=== PATIENT | female | born 1955 | race Caucasian/White ===

== ENCOUNTER → 2017-07-23 | Outpatient (CLI) | payer BC ==
[~2017-07-23] MED LIST: ACE325 PO; ALBU8.5H IH; AMIT-106 PO; AZIT-17 PO; BEN100 PO; BENZ100C4 PO; BENZ200C15 PO; BENZ200C38 PO; BLOO-1318 MC; BLOO-1337 MC; CALC-547 PO; CHOLESTROL MED; CIPR100T4 PO; CITA-156 PO; CITA-157 PO; CITA10SO7 PO; CLOB59LO4 TP; CODE118S5 PO; COL625PT PO; DESI25TA PO; DEXL60CA6 PO; DICY20TA70 PO; DIPH0.5D12 IM; DOXY-179 PO; EMPA1TAB3 PO; ESOM40CA42 PO; ESTR10TA4 VG; ESTR42.5 VG; EZE10 PO; EZET10TA41 PO; FLU150 PO; FLU45SYR17 IM; FLU45SYR25 IM ONLY; FLU60SYR30 IM ONLY; FLUC100T35 PO; FLUC150T40 PO; FLUT16SP19 NS; GABA-549 PO; GENUVIA PO; GLIM2TAB43 PO; GLIP-152 PO; GUAI120L3 PO; HYDR-4309 PO; HYOS-49 PO; HYOS0.1224 SL; KET10 PO; LANC-1149 MC; LEVO-3 PO; LEVO50TA86 PO; LEVO75TA68 PO; LEVO75TA73 PO; LEVO88TA42 PO; LEVO88TA45 PO; LOM PO; LORA-630 PO; MELO-207 PO; METR-1 PO; METXR500 PO; MOX400 PO; NITR-105 PO; OLO2ODPT OD; OMEP-125 PO; OMEP-137 PO; OMEP40CA48 PO; ONDA4TAB PO; ONDA8TAB98 PO; OXYC-865 PO; PAN40 PO; PER PO; POLY17PO25 PO; POTA-23 PO; PRAV20TA65 PO; PRAV20TA66 PO; PRAV40TA78 PO; PRO25 PO; SAXA2.5T3 PO; SITA100T PO; SITA50TA6 PO; TRAM-420 PO; [UNRECOGNIZED DRUG - CODE] PO
--- NOTE | 2017-07-23 14:26 | RADIOLOGY IMAGING REPORT ---
FACILITY: [facility] PATIENT NAME: Lia Nieves : 1955 MR: [id number] V: [id number] EXAM DATE: ORDERING PHYSICIAN: TERESA HANDY TECHNOLOGIST: [facility] Patient: Lia Nieves : 1955 Visit/Account:[id number] Date of Sevice: 07/23/2017 2 VIEWS CHEST INDICATION: Copy one half weeks. COMPARISON: 04/21/2017. FINDINGS: Cardiomediastinal silhouette and pulmonary vessels within normal limits. There is no focal infiltrate or lobar consolidation. There is no pneumothorax or pleural effusion. No nodule. Upper abdomen is unremarkable. No acute bony abnormality. IMPRESSION: 1. No acute cardiopulmonary process. Report Dictated By: Paolo Shah at 07/23/2017 2:20 PM Report E-Signed By: Paolo Shah at 07/23/2017 2:22 PM WSN:[id number]
== END ==
LOC: RAD 13:41
PROVIDERS: ATTEND Nurse Practitioner Primary Care
DX: R05 Cough (principal)
CPT/HCPCS: 71046

== ENCOUNTER → 2017-08-13 | Outpatient (CLI) | payer BC ==
[~2017-08-13] MED LIST changes: +FLUT1DIS28 IH
== END ==
LOC: LAB 14:09
PROVIDERS: ATTEND Emergency Medicine
DX: E11.9 Type 2 diabetes mellitus without complications (principal); E03.9 Hypothyroidism, unspecified
CPT/HCPCS: 82465; 83718; 84443; 84478

== ENCOUNTER → 2017-09-27 | Outpatient (CLI) | payer BC ==
[~2017-09-27] MED LIST changes: +FLUC100T39 PO
== END ==
LOC: LAB 13:32
PROVIDERS: ATTEND Emergency Medicine
DX: E11.9 Type 2 diabetes mellitus without complications (principal); E03.9 Hypothyroidism, unspecified
CPT/HCPCS: 36415; 83036; 84443

== ENCOUNTER → 2017-10-18 | Outpatient (CLI) | payer BC ==
[~2017-10-18] MED LIST changes: +CITA-137 PO; +CLOB15OI16 TP; +LOR5/325 PO
== END ==
LOC: LAB 11:01
PROVIDERS: ATTEND Obstetrics & Gynecology
DX: N90.89 Other specified noninflammatory disorders of vulva and perineum (principal)
CPT/HCPCS: 88305

== ENCOUNTER → 2017-11-06 | Outpatient (CLI) | payer BC | LOC: LAB 16:47 | PROVIDERS: ATTEND Nurse Practitioner Primary Care | DX: N89.8 Other specified noninflammatory disorders of vagina (principal); R35.0 Frequency of micturition | CPT/HCPCS: 81001; 87210 ==

== ENCOUNTER → 2017-12-16 | Outpatient (CLI) | payer BC | LOC: LAB 08:52 | PROVIDERS: ATTEND Emergency Medicine | DX: E11.9 Type 2 diabetes mellitus without complications (principal) | CPT/HCPCS: 36415; 82465; 83036; 83718; 84443; 84478 ==

== ENCOUNTER 2018-01-24 20:20 | Emergency (ER) | payer BC ==
--- NOTE | 2018-01-24 20:27 | ER Report ---
History and Physical Time Seen By MD: 20:27 Hx. of Stated Complaint: DIARRHEA AND NAUSEA ALL WEEK, TODAY DIARRHEA AND ABD PAIN WORSE, CHILLS, BODY ACHES HPI/ROS CHIEF COMPLAINT: abdominal pain, fever, aches, diarrhea HISTORY OF PRESENT ILLNESS: This is a 63 year old female. She has been having abdominal pain for the last week or so associated with diarrhea as well. Today started having chills and aches as well. Pain diffuse in the abdomen. Worsens with sitting or moving. No vomiting yet. Took some pepto-bismol. Stools have been a little dark since the pepto. No fevers, but having chills. Normal urination without dysuria. No blood noted in stool or urine. No new medicines. She took some Zofran and Tylenol prior to coming in to the ER, but without relief. REVIEW OF SYSTEMS: Constitutional: As above. Eyes: No vision changes. ENT: No sore throat. No congestion. Cardiovascular: No chest pain. Respiratory: No cough. No shortness of breath. Gastrointestinal: As above. Genitourinary: As above. Musculoskeletal: No extremity pain. Skin: No rashes. Neurological: No focal weakness or numbness. Mild dizziness with standing. No headache. Allergies: Coded Allergies: Penicillins (Verified Allergy, Intermediate, HIVES, 01/24/18) simvastatin (Verified Allergy, Intermediate, Severe muscle pain, 01/24/18) Sulfa (Sulfonamide Antibiotics) (Verified Allergy, Mild, N/V, 01/24/18) atorvastatin (Verified Allergy, Mild, weakness, 01/24/18) celecoxib (Verified Allergy, Mild, weakness, 01/24/18) erythromycin base (Verified Allergy, Mild, N/V, HEADAHCE, 01/24/18) levofloxacin (Verified Allergy, Unknown, 01/24/18) clindamycin (Verified Adverse Reaction, Intermediate, rash, 01/24/18) prednisone (Verified Adverse Reaction, Intermediate, Tremor and anxiety, ) rosuvastatin (Verified Adverse Reaction, Mild, weakness, 01/24/18) Home Meds Active Scripts Oxycodone Hcl/Acetaminophen (PERCOCET 5-325 MG TABLET) 1 Each Tablet, 1 EACH PO Q4H Y for PAIN, #12 TAB 0 Refills Prov:LONNY ADAMES MD 01/24/18 Promethazine Hcl (PROMETHAZINE HCL) 25 Mg Tablet, 25 MG PO Q8H Y for NAUSEA/ VOMITING, #20 TAB 0 Refills Prov:LONNY ADAMES MD 01/24/18 Empagliflozin/Linagliptin (Glyxambi 10 mg-5 mg Tablet) 1 Each Tablet, 1 TAB PO DAILY, #90 TAB 3 Refills Prov:ESVIN BAXTER MD 01/21/18 Clobetasol Propionate (CLOBETASOL PROPIONATE) 15 Gm Oint...g., 1 RAS TP 3XW for 30 Days, #1 TUBE 1 Refill 1 application to affected area 3 times weekly Prov:TONYA HOOKS MD 01/09/18 Levothyroxine Sodium (LEVOTHYROXINE SODIUM) 100 Mcg Tablet, 100 MCG PO DAILY, # 45 TAB 0 Refills Prov:ESVIN BAXTER MD 12/17/17 Omeprazole (OMEPRAZOLE) 40 Mg Capsule.dr, 40 MG PO QDAY Y for REFLUX, #90 CAP 4 Refills Prov:ESVIN BAXTER MD 12/17/17 Fluticasone Prop 50 Mcg Ns (FLONASE 50 MCG NS) 16 Gm [place].susp, 2 SPRAYS NS QDAY, #1 BOT 10 Refills Prov:ESVIN BAXTER MD 11/26/17 Lancets (ONE TOUCH LANCETS) 1 Each Each, 1 EACH MC QDAY, #100 3 Refills use once a day to test blood sugar Prov:ESVIN BAXTER MD 06/29/16 Blood Sugar Diagnostic (ONE TOUCH ULTRA TEST STRIPS) 1 Each Strip, 1 EACH MC QDAY, #100 STRIP 3 Refills use once a day to test blood sugar Prov:ESVIN BAXTER MD 06/29/16 Reported Medications Aspirin (ASPIR 81) 81 Mg Tablet.dr, 81 MG PO QDAY, TAB 01/24/18 Citalopram Hydrobromide (CITALOPRAM HBR) 20 Mg Tablet, 30 MG PO QDAY, #5 TAB 01/24/18 Discontinued Scripts Fluconazole (DIFLUCAN) 150 Mg Tablet, 150 MG PO QDAY for 2 Days, #2 TAB 0 Refills 1 tab Po Now and Repeat in 3 days Prov:TONYA HOOKS MD 01/09/18 Colesevelam Hcl (WELCHOL) 625 Mg Tablet, 3 TAB PO BID, #540 TAB 1 Refill Prov:ESVIN BAXTER MD 12/25/17 Citalopram Hydrobromide (CELEXA) 20 Mg Tablet, 1 TAB PO QDAY, #90 TAB 1 Refill Prov:ESVIN BAXTER MD 10/25/17 Citalopram Hydrobromide (CITALOPRAM HBR) 10 Mg Tablet, 10 MG PO QDAY, #90 TAB 1 Refill Prov:ESVIN BAXTER MD 10/25/17 Fluticasone/Salmeterol (ADVAIR 250-50 DISKUS) 1 Each Disk.w.dev, 1 EACH IH BID, #1 INHALER Prov:ESVIN BAXTER MD 08/13/17 Blood-Glucose Meter (ONE TOUCH ULTRA 2) 1 Each Kit, 1 EACH MC QDAY, #1 use once a day to test blood sugars Prov:ESVIN BAXTER MD 06/29/16 Reviewed Nurses Notes: Yes Hx Smoking: No Smoking Status: Never Smoker Hx Substance Use Disorder: No Hx Alcohol Use: No Constitutional Vital Sign - Last 24 Hours 01/24/18 01/24/18 01/24/18 01/24/18 20:29 20:30 20:45 20:54 Temp 98.1 Pulse 88 86 87 Resp 18 B/P (MAP) 111/77 116/75 (89) Pulse Ox 94 94 95 O2 Delivery Room Air O2 Flow Rate 2.0 01/24/18 01/24/18 21:00 21:15 Pulse 82 100 B/P (MAP) 118/70 (86) Pulse Ox 96 98 Physical Exam General Appearance: The patient is alert. Acute distress due to pain. Eyes: Pupils are equal, round. No pallor, injection or icterus. ENT: Mucous membranes are moist. Normal oral mucosa. Posterior oropharynx is normal. Neck: Supple and non tender. Respiratory: Lungs are clear to auscultation. Cardiovascular: Regular rate and rhythm. No murmurs, gallops or rubs. Normal capillary refill. No edema. Gastrointestinal: Abdomen is soft, tender diffusely. Hyperactive bowel sounds. Mild distension. Guarding but no rebound. Mild bilateral costovertebral angle tenderness with percussion. Neurological: Alert and oriented x3. Skin: Warm and dry. No rashes. Musculoskeletal: No tenderness in palpation of the back and spine. DIFFERENTIAL DIAGNOSIS: After history and physical exam, differential diagnosis was considered for abdominal pain including but not limited to appendicitis, cholecystitis, gastritis and urinary tract infection. Medical Decision Making Data Points Result Diagram: 01/24/18204301/24/182043 Laboratory Hematology Test 01/24/18 20:44 01/24/18 21:34 Red Blood Count 5.77 M/uL (4.17-5.56) Mean Corpuscular Volume 81.1 fL (80.0-96.0) Mean Corpuscular Hemoglobin 27.6 pg (26.0-33.0) Mean Corpuscular Hemoglobin Concent 34.1 g/dL (32.0-36.0) Red Cell Distribution Width 13.9 % (11.5-14.5) Mean Platelet Volume 7.9 fL (7.2-11.1) Neutrophils (%) (Auto) 83.9 % (39.4-72.5) Lymphocytes (%) (Auto) 9.4 % (17.6-49.6) Monocytes (%) (Auto) 4.4 % (4.1-12.4) Eosinophils (%) (Auto) 1.7 % (0.4-6.7) Basophils (%) (Auto) 0.6 % (0.3-1.4) Nucleated RBC Relative Count (auto) 0.0 /100WBC Neutrophils # (Auto) 9.9 K/uL (2.0-7.4) Lymphocytes # (Auto) 1.1 K/uL (1.3-3.6) Monocytes # (Auto) 0.5 K/uL (0.3-1.0) Eosinophils # (Auto) 0.2 K/uL (0.0-0.5) Basophils # (Auto) 0.1 K/uL (0.0-0.1) Nucleated RBC Absolute Count (auto) 0.00 K/uL Sodium Level 141 mmol/L (137-145) Potassium Level 3.2 mmol/L (3.5-5.0) Chloride Level 106 mmol/L (98-107) Carbon Dioxide Level 24 mmol/L (22-31) Blood Urea Nitrogen 10 mg/dl (7-18) Creatinine 0.90 mg/dl (0.52-1.04) Glomerular Filtration Rate Calc > 60.0 Random Glucose 117 mg/dl (75-110) Lactate 0.9 mmol/L (0.7-2.1) Calcium Level 8.5 mg/dl (8.4-10.2) Total Bilirubin 0.7 mg/dl (0.2-1.3) Aspartate Amino Transf (AST/SGOT) 36 U/L (0-35) Alanine Aminotransferase (ALT/SGPT) 34 U/L (0-56) Alkaline Phosphatase 135 U/L (0-126) C-Reactive Protein 1.6 mg/dl (<1.0) Total Protein 7.5 g/dl (6.3-8.2) Albumin 4.1 g/dl (3.5-5.0) Amylase Level 98 U/L (0-110) Lipase 46 U/L (23-300) Stool Occult Blood (IFOB) Positive (NEGATIVE) Stool Leukocytes, Qualitative Positive Clostridium Difficile Toxin A & B Negative Clostridium difficile Antigen Negative Chemistry Test 01/24/18 20:44 01/24/18 21:34 White Blood Count 11.8 k/uL (4.5-11.0) Red Blood Count 5.77 M/uL (4.17-5.56) Hemoglobin 15.9 g/dL (12.0-16.0) Hematocrit 46.8 % (34.0-47.0) Mean Corpuscular Volume 81.1 fL (80.0-96.0) Mean Corpuscular Hemoglobin 27.6 pg (26.0-33.0) Mean Corpuscular Hemoglobin Concent 34.1 g/dL (32.0-36.0) Red Cell Distribution Width 13.9 % (11.5-14.5) Platelet Count 252 K/uL (150-450) Mean Platelet Volume 7.9 fL (7.2-11.1) Neutrophils (%) (Auto) 83.9 % (39.4-72.5) Lymphocytes (%) (Auto) 9.4 % (17.6-49.6) Monocytes (%) (Auto) 4.4 % (4.1-12.4) Eosinophils (%) (Auto) 1.7 % (0.4-6.7) Basophils (%) (Auto) 0.6 % (0.3-1.4) Nucleated RBC Relative Count (auto) 0.0 /100WBC Neutrophils # (Auto) 9.9 K/uL (2.0-7.4) Lymphocytes # (Auto) 1.1 K/uL (1.3-3.6) Monocytes # (Auto) 0.5 K/uL (0.3-1.0) Eosinophils # (Auto) 0.2 K/uL (0.0-0.5) Basophils # (Auto) 0.1 K/uL (0.0-0.1) Nucleated RBC Absolute Count (auto) 0.00 K/uL Glomerular Filtration Rate Calc > 60.0 Lactate 0.9 mmol/L (0.7-2.1) Calcium Level 8.5 mg/dl (8.4-10.2) Total Bilirubin 0.7 mg/dl (0.2-1.3) Aspartate Amino Transf (AST/SGOT) 36 U/L (0-35) Alanine Aminotransferase (ALT/SGPT) 34 U/L (0-56) Alkaline Phosphatase 135 U/L (0-126) C-Reactive Protein 1.6 mg/dl (<1.0) Total Protein 7.5 g/dl (6.3-8.2) Albumin 4.1 g/dl (3.5-5.0) Amylase Level 98 U/L (0-110) Lipase 46 U/L (23-300) Stool Occult Blood (IFOB) Positive (NEGATIVE) Stool Leukocytes, Qualitative Positive Clostridium Difficile Toxin A & B Negative Clostridium difficile Antigen Negative EKG/Imaging Imaging ABDOMEN/PELVIS WITH CONTRAST Additional pertinent History: Abdominal pain/diarrhea TECHNIQUE: Spiral scan was through the abdomen and pelvis during injection of nonionic iodinated intravenous contrast. Contrast: 75 mL of IV Isovue-370. COMPARISON STUDIES: none. FINDINGS: Liver / biliary: Status post cholecystectomy Pancreas: negative Spleen: negative Adrenal glands: negative Kidneys / retroperitoneum: negative Pelvic structures: negative Bowel / peritoneum / mesenteries: No colonic mass lesions. No abnormal enhancement. Diverticuli with no evidence of diverticulitis. Appendix absent. There is mild enhancement of the anus and lower rectal wall. Vessels: negative Musculoskeletal / Body wall: negative Lymph node assessment: negative Lower chest: negative IMPRESSION: 1. Negative CT scan of the abdomen/pelvis. Specifically, no evidence of obstruction or diverticulitis which were the potential issues of clinical concern. There is a mild enhancement of the wall of the anus/rectum of uncertain significance. May be related to hemorrhoids. Recommend clinical correlation and appropriate follow-up. Report Dictated By: Eze Fagan MD at 01/24/2018 10:09 PM ED Course/Re-evaluation Clinical Indication for ER IV: Hydration, IV Access ED Course Discussed the findings of labs with the patient. Mild elevated white blood cell count. Mild elevation of the c-reactive protein. Negative lactate. Potassium is mildly low at 3.2. Some improvement with giving her some Morphine and Zofran. Later gave her some Dilaudid 0.5mg IV and then some Phenergan 12.5mg IV. Imaging discussed with the radiologist. No acute problem noted. The patient is feeling much better. Discussed that this is likely a viral enteritis and will use conservative treatment over the next 12-24 hours. Shared decision making after discussing the labs and options of going home or staying in the hospital as well as risks and benefits of both. Decision to Disposition Date: Jan 24, 2018 Decision to Disposition Time: 23:10 Depart Departure Latest Vital Signs Vital Signs Date Time Temp Pulse Resp B/P (MAP) Pulse Ox O2 Delivery O2 Flow Rate FiO2 01/24/18 21:15 100 98 01/24/18 21:00 118/70 (86) 01/24/18 20:54 2.0 01/24/18 20:29 98.1 18 Room Air Impression: Primary Impression: Viral enteritis Condition: Improved Disposition: HOME OR SELF-CARE Referrals: ESVIN BAXTER MD (PCP) New Scripts Oxycodone Hcl/Acetaminophen (PERCOCET 5-325 MG TABLET) 1 Each Tablet 1 EACH PO Q4H Y for PAIN, #12 TAB 0 Refills Prov: LONNY ADAMES MD 01/24/18 Promethazine Hcl (PROMETHAZINE HCL) 25 Mg Tablet 25 MG PO Q8H Y for NAUSEA/VOMITING, #20 TAB 0 Refills Prov: LONNY ADAMES MD 01/24/18 Patient Instructions: Enteritis (ED) Additional Instructions: Your pain, nausea/vomiting and diarrhea appear to be likely due to a viral enteritis. A viral infection in the intestines can cause all of these symptoms and can be somewhat worse in patients with irritable bowel syndrome as well. The CT scan did not show any signs of blockage or signs of bacterial infection. We would like to have you rest and increase fluid intake for the next few days. Take Percocet 5/325, one every 4 hours as needed for pain. Take Phenergan 25mg, one every 6 hours as needed for nausea or vomiting. If not improving in the next 24-48 hours, please return for re-evaluation. Return sooner for uncontrolled pain, uncontrolled vomiting, or for fevers. LONNY ADAMES MD Jan 24, 2018 20:27
[2018-01-24] MEDS ORDERED: NS(*) 0.9% 1000 ML BAG 1,000 ML IV ONE (20:31)
[2018-01-24] MEDS ORDERED: PANTOPRAZOLE SOD 40 MG IV VIAL IVP ONE (20:35)
[2018-01-24] MEDS ORDERED: ONDANSETRON 4 MG/2 ML VIAL IVP ONE (20:35)
[2018-01-24] MEDS ORDERED: MORPHINE 4 MG/ML SDV IVP ONE (20:35)
[2018-01-24] MEDS ORDERED: ASPI-1471 PO (20:38)
[2018-01-24] MEDS ORDERED: CITA-145 PO (20:38)
[2018-01-24 20:51] LABS: PLATELET COUNT, AUTOMATED 252 K/uL (150-450)
[2018-01-24 21:00] VITALS: BP 118/70
[2018-01-24] MEDS ORDERED: HYDROMORPHONE HCL 1 MG/ML SYRINGE IVP ONE (21:10)
[2018-01-24] MEDS ORDERED: PROMETHAZINE 25 MG/ML 1 ML AMP IVP ONE (21:20)
[2018-01-24] MEDS ORDERED: IOPAMIDOL 76% 100 ML INFUS BTL 100 ML ONE (21:32)
--- NOTE | 2018-01-24 22:29 | RADIOLOGY IMAGING REPORT ---
FACILITY: [facility] PATIENT NAME: Lia Nieves : 1955 MR: [id number] V: [id number] EXAM DATE: ORDERING PHYSICIAN: LONNY ADAMES TECHNOLOGIST: Location: [facility] [place] Patient: Lia Nieves : 1955 Visit/Account:[id number] Date of Sevice: 01/24/2018 ABDOMEN/PELVIS WITH CONTRAST Additional pertinent History: Abdominal pain/diarrhea TECHNIQUE: Spiral scan was through the abdomen and pelvis during injection of nonionic iodinated in travenous contrast. Contrast: 75 mL of IV Isovue-[id number]. COMPARISON STUDIES: none. FINDINGS: Liver / biliary: Status post cholecystectomy Pancreas: negative Spleen: negative Adrenal glands: negative Kidneys / retroperitoneum: negative Pelvic structures: negative Bowel / peritoneum / mesenteries: No colonic mass lesions. No abnormal enhancement. Diverticuli with no evidence of diverticulitis. Appendix absent. There is mild enhancement of the anus and lower recta l wall. Vessels: negative Musculoskeletal / Body wall: negative Lymph node assessment: negative Lower chest: negative IMPRESSION: 1. Negative CT scan of the abdomen/pelvis. Specifically, no evidence of obstruction or diverticulitis which were the potential issues of clinical concern. There is a mild enhancement of the wall of the anus/rectum of uncertain significance. May be related to hemorrhoids. Recommend clinical correlation and appropriate follow-up. Report Dictated By: Eze Fagan MD at 01/24/2018 10:09 PM Report E-Signed By: Eze Fagan MD at 01/24/2018 10:26 PM WSN:[id number]
[2018-01-24] MEDS ORDERED: oxyCODONE/ACETAMIN 5/325MG TH 2 TAB/BOTTLE PO ONE (23:10)
[2018-01-24] MEDS ORDERED: PROMETHAZINE HCL 25 MG TAB TH 2 TAB/BOTTLE PO ONE (23:10)
[2018-01-24] MEDS ORDERED: PROM-110 PO (23:13)
[2018-01-24] MEDS ORDERED: OXYC-865 PO (23:13)
[2018-01-27] MEDS ORDERED: LIDO113G2 TP (14:25)
== END 2018-01-24 23:25 | disposition home or self-care (01) ==
LOC: ER 20:29
DX: A08.4 Viral intestinal infection, unspecified (principal)
CPT/HCPCS: 74177; 82150; 82274; 83605; 83630; 83690; 85025; 86140; 87045; 87324; 87449; 96361; 96374; 96375; 99284; C9113; J1170; J2270; J2405; J2550; J7030; Q9967; 82040; 82247; 82310; 82374; 82435; 82565; 82947; 84075; 84132; 84155; 84295; 84450; 84460; 84520

== ENCOUNTER → 2018-01-27 | Outpatient (CLI) | payer BC ==
[~2018-01-27] MED LIST changes: +ASPI-1471 PO; +CITA-145 PO; +LIDO113G2 TP; +PROM-110 PO
== END ==
LOC: LAB 14:24
PROVIDERS: ATTEND Obstetrics & Gynecology
DX: R30.0 Dysuria (principal); S30.824A Blister (nonthermal) of vagina and vulva, initial encounter; R82.79 Other abnormal findings on microbiological examination of urine
CPT/HCPCS: 81001; 87088; 87252; 87253

== ENCOUNTER → 2018-02-03 | Outpatient (CLI) | payer BC ==
[~2018-02-03] MED LIST changes: +LEV112 PO
== END ==
LOC: LAB 09:05
PROVIDERS: ATTEND Emergency Medicine
DX: E03.9 Hypothyroidism, unspecified (principal)
CPT/HCPCS: 84443

== ENCOUNTER 2018-02-21 16:05 | Emergency (ER) | payer BC ==
--- NOTE | 2018-02-21 16:22 | ER Report ---
History and Physical Time Seen By MD: 16:22 Hx. of Stated Complaint: DIZZINESS AND HEADACHE HPI/ROS CHIEF COMPLAINT: Dizziness and palpitations HISTORY OF PRESENT ILLNESS: This is a 63-year-old female presents to the [facility] for dizziness and palpitations. Patient states that over the last week she's had nausea some vomiting with lightheadedness, dizziness admit and headaches although mild, with intermittent aches and chills. Intermittent palpitations, no chest pain or shortness of breath. No fevers. No rashes. This is not the worst headache she's had. Patient was sent from her primary care provider's office. REVIEW OF SYSTEMS: Constitutional: As above. Eyes: No discharge. ENT: No sore throat. Cardiovascular: As above. Respiratory: No cough, no shortness of breath. Gastrointestinal: As above. Genitourinary: No hematuria. Musculoskeletal: No back pain. Skin: No rashes. Neurological: As above. Allergies: Coded Allergies: Penicillins (Verified Allergy, Intermediate, HIVES, 01/24/18) simvastatin (Verified Allergy, Intermediate, Severe muscle pain, 01/24/18) Sulfa (Sulfonamide Antibiotics) (Verified Allergy, Mild, N/V, 01/24/18) atorvastatin (Verified Allergy, Mild, weakness, 01/24/18) celecoxib (Verified Allergy, Mild, weakness, 01/24/18) erythromycin base (Verified Allergy, Mild, N/V, HEADAHCE, 01/24/18) levofloxacin (Verified Allergy, Unknown, 01/24/18) clindamycin (Verified Adverse Reaction, Intermediate, rash, 01/24/18) prednisone (Verified Adverse Reaction, Intermediate, Tremor and anxiety, 01/24/18) rosuvastatin (Verified Adverse Reaction, Mild, weakness, 01/24/18) Home Meds Active Scripts Meclizine Hcl (MECLIZINE HCL) 25 Mg Tablet, 25 MG PO BID PRN for prn, #10 TAB 0 Refills Prov:TAL HEMPHILL CUT OFF MACHINE HELPER-BC 02/21/18 Levothyroxine Sodium (LEVOTHYROXINE SODIUM) 0.112 Mg Tab, 0.112 MG PO QDAY, #45 TAB 0 Refills Prov:ESVIN BAXTER MD 02/03/18 Empagliflozin/Linagliptin (Glyxambi 10 mg-5 mg Tablet) 1 Each Tablet, 1 TAB PO DAILY, #90 TAB 3 Refills Prov:ESVIN BAXTER MD 01/21/18 Omeprazole (OMEPRAZOLE) 40 Mg Capsule.dr, 40 MG PO QDAY PRN for REFLUX, #90 CAP 4 Refills Prov:ESVIN BAXTER MD 12/17/17 Fluticasone Prop 50 Mcg Ns (FLONASE 50 MCG NS) 16 Gm [place].susp, 2 SPRAYS NS QDAY, #1 BOT 10 Refills Prov:ESVIN BAXTER MD 11/26/17 Lancets (ONE TOUCH LANCETS) 1 Each Each, 1 EACH MC QDAY, #100 3 Refills use once a day to test blood sugar Prov:ESVIN BAXTER MD 06/29/16 Blood Sugar Diagnostic (ONE TOUCH ULTRA TEST STRIPS) 1 Each Strip, 1 EACH MC QDAY, #100 STRIP 3 Refills use once a day to test blood sugar Prov:ESVIN BAXTER MD 06/29/16 Reported Medications Aspirin (ASPIR 81) 81 Mg Tablet.dr, 81 MG PO QDAY, TAB 01/24/18 Citalopram Hydrobromide (CITALOPRAM HBR) 20 Mg Tablet, 30 MG PO QDAY, #5 TAB 01/24/18 Discontinued Scripts Lidocaine (TOPICAINE 5) 113 Gm Gel..gram., 113 GM TP TID PRN for PAIN, #1 TUBE 0 Refills Apply peasized amount to affected area prn pain Prov:LUCI ARSHAD DO 01/27/18 Oxycodone Hcl/Acetaminophen (PERCOCET 5-325 MG TABLET) 1 Each Tablet, 1 EACH PO Q4H PRN for PAIN, #12 TAB 0 Refills Prov:LONNY ADAMES MD 01/24/18 Promethazine Hcl (PROMETHAZINE HCL) 25 Mg Tablet, 25 MG PO Q8H PRN for NAUSEA/VOMITING, #20 TAB 0 Refills Prov:LONNY ADAMES MD 01/24/18 Clobetasol Propionate (CLOBETASOL PROPIONATE) 15 Gm Oint...g., 1 RAS TP 3XW for 30 Days, #1 TUBE 1 Refill 1 application to affected area 3 times weekly Prov:TONYA HOOKS MD 01/09/18 Hx Smoking: No Smoking Status: Never Smoker Hx Substance Use Disorder: No Hx Alcohol Use: No Constitutional Vital Sign - Last 24 Hours 02/21/18 02/21/18 02/21/18 02/21/18 16:11 16:11 16:30 16:35 Temp 97.7 Pulse 72 74 Resp 18 17 B/P (MAP) 129/76 129/76 (93) 121/84 (96) Pulse Ox 95 96 O2 Delivery Room Air 02/21/18 02/21/18 02/21/18 02/21/18 17:00 17:05 17:26 17:30 Resp 9 B/P (MAP) 107/68 (81) 112/75 (87) 119/77 (91) Pulse Ox 91 02/21/18 02/21/18 17:35 18:00 Pulse 71 Resp 13 B/P (MAP) 105/70 (82) Pulse Ox 88 Physical Exam General Appearance: The patient is alert, has no immediate need for airway protection and no signs of toxicity. Eyes: Pupils equal and round no pallor or injection. ENT, Mouth: Mucous membranes are moist. Respiratory: There are no retractions, lungs are clear to auscultation. Cardiovascular: Regular rate and rhythm, no murmurs, clicks or rubs. Gastrointestinal: Abdomen is soft and non tender, no masses, hypoactive bowel sounds. Neurological: Alert and oriented 4. Moving all extremities. Following all commands. No focal neuro deficits. Positive Alina maneuver. Skin: Warm and dry, no rashes. Musculoskeletal: Neck is supple non tender. Extremities are nontender, nonswollen and have full range of motion. DIFFERENTIAL DIAGNOSIS: After history and physical exam differential diagnosis was considered for nausea and vomiting including but not limited to gastroenteritis, gastritis, appendicitis, and medication side effect. Medical Decision Making Data Points Result Diagram: 02/21/18 1620 02/21/18 1620 Laboratory Hematology Test 02/21/18 16:20 02/21/18 17:28 Red Blood Count 5.92 M/uL (4.17-5.56) Mean Corpuscular Volume 81.6 fL (80.0-96.0) Mean Corpuscular Hemoglobin 27.7 pg (26.0-33.0) Mean Corpuscular Hemoglobin Concent 34.0 g/dL (32.0-36.0) Red Cell Distribution Width 14.2 % (11.5-14.5) Mean Platelet Volume 8.3 fL (7.2-11.1) Neutrophils (%) (Auto) 61.7 % (39.4-72.5) Lymphocytes (%) (Auto) 27.4 % (17.6-49.6) Monocytes (%) (Auto) 7.8 % (4.1-12.4) Eosinophils (%) (Auto) 2.0 % (0.4-6.7) Basophils (%) (Auto) 1.1 % (0.3-1.4) Nucleated RBC Relative Count (auto) 0.1 /100WBC Neutrophils # (Auto) 5.8 K/uL (2.0-7.4) Lymphocytes # (Auto) 2.6 K/uL (1.3-3.6) Monocytes # (Auto) 0.7 K/uL (0.3-1.0) Eosinophils # (Auto) 0.2 K/uL (0.0-0.5) Basophils # (Auto) 0.1 K/uL (0.0-0.1) Nucleated RBC Absolute Count (auto) 0.01 K/uL Sodium Level 140 mmol/L (137-145) Potassium Level 3.7 mmol/L (3.5-5.0) Chloride Level 106 mmol/L (98-107) Carbon Dioxide Level 23 mmol/L (22-31) Blood Urea Nitrogen 12 mg/dl (7-18) Creatinine 0.80 mg/dl (0.52-1.04) Glomerular Filtration Rate Calc > 60.0 Random Glucose 148 mg/dl (75-110) Calcium Level 9.3 mg/dl (8.4-10.2) Total Bilirubin 0.7 mg/dl (0.2-1.3) Aspartate Amino Transf (AST/SGOT) 34 U/L (0-35) Alanine Aminotransferase (ALT/SGPT) 36 U/L (0-56) Alkaline Phosphatase 147 U/L (0-126) Troponin I < 0.012 ng/ml Total Protein 8.0 g/dl (6.3-8.2) Albumin 4.5 g/dl (3.5-5.0) Urine Color Straw Urine Clarity Clear Urine pH 6.0 pH (4.8-9.5) Urine Specific [place] 1.013 Urine Protein Negative mg/dL (NEGATIVE) Urine Glucose (UA) 500 mg/dL (NEGATIVE) Urine Ketones Negative mg/dL (NEGATIVE) Urine Blood Negative (NEGATIVE) Urine Nitrite Negative (NEGATIVE) Urine Bilirubin Negative (NEGATIVE) Urine Urobilinogen Negative mg/dL (0.2-1.9) Urine Leukocyte Esterase Negative (NEGATIVE) Urine RBC 1 /HPF (0-2/HPF) Urine WBC 2 /HPF (0-5/HPF) Urine Squamous Epithelial Cells Few /LPF (</=FEW) Urine Bacteria Negative /HPF (NONE-FEW) Urine Mucus None /HPF (NONE-FEW) Chemistry Test 02/21/18 16:20 02/21/18 17:28 White Blood Count 9.3 k/uL (4.5-11.0) Red Blood Count 5.92 M/uL (4.17-5.56) Hemoglobin 16.4 g/dL (12.0-16.0) Hematocrit 48.3 % (34.0-47.0) Mean Corpuscular Volume 81.6 fL (80.0-96.0) Mean Corpuscular Hemoglobin 27.7 pg (26.0-33.0) Mean Corpuscular Hemoglobin Concent 34.0 g/dL (32.0-36.0) Red Cell Distribution Width 14.2 % (11.5-14.5) Platelet Count 247 K/uL (150-450) Mean Platelet Volume 8.3 fL (7.2-11.1) Neutrophils (%) (Auto) 61.7 % (39.4-72.5) Lymphocytes (%) (Auto) 27.4 % (17.6-49.6) Monocytes (%) (Auto) 7.8 % (4.1-12.4) Eosinophils (%) (Auto) 2.0 % (0.4-6.7) Basophils (%) (Auto) 1.1 % (0.3-1.4) Nucleated RBC Relative Count (auto) 0.1 /100WBC Neutrophils # (Auto) 5.8 K/uL (2.0-7.4) Lymphocytes # (Auto) 2.6 K/uL (1.3-3.6) Monocytes # (Auto) 0.7 K/uL (0.3-1.0) Eosinophils # (Auto) 0.2 K/uL (0.0-0.5) Basophils # (Auto) 0.1 K/uL (0.0-0.1) Nucleated RBC Absolute Count (auto) 0.01 K/uL Glomerular Filtration Rate Calc > 60.0 Calcium Level 9.3 mg/dl (8.4-10.2) Total Bilirubin 0.7 mg/dl (0.2-1.3) Aspartate Amino Transf (AST/SGOT) 34 U/L (0-35) Alanine Aminotransferase (ALT/SGPT) 36 U/L (0-56) Alkaline Phosphatase 147 U/L (0-126) Troponin I < 0.012 ng/ml Total Protein 8.0 g/dl (6.3-8.2) Albumin 4.5 g/dl (3.5-5.0) Urine Color Straw Urine Clarity Clear Urine pH 6.0 pH (4.8-9.5) Urine Specific [place] 1.013 Urine Protein Negative mg/dL (NEGATIVE) Urine Glucose (UA) 500 mg/dL (NEGATIVE) Urine Ketones Negative mg/dL (NEGATIVE) Urine Blood Negative (NEGATIVE) Urine Nitrite Negative (NEGATIVE) Urine Bilirubin Negative (NEGATIVE) Urine Urobilinogen Negative mg/dL (0.2-1.9) Urine Leukocyte Esterase Negative (NEGATIVE) Urine RBC 1 /HPF (0-2/HPF) Urine WBC 2 /HPF (0-5/HPF) Urine Squamous Epithelial Cells Few /LPF (</=FEW) Urine Bacteria Negative /HPF (NONE-FEW) Urine Mucus None /HPF (NONE-FEW) Urinalysis Test 02/21/18 17:28 Urine Color Straw Urine Clarity Clear Urine pH 6.0 pH (4.8-9.5) Urine Specific [place] 1.013 Urine Protein Negative mg/dL (NEGATIVE) Urine Glucose (UA) 500 mg/dL (NEGATIVE) Urine Ketones Negative mg/dL (NEGATIVE) Urine Blood Negative (NEGATIVE) Urine Nitrite Negative (NEGATIVE) Urine Bilirubin Negative (NEGATIVE) Urine Urobilinogen Negative mg/dL (0.2-1.9) Urine Leukocyte Esterase Negative (NEGATIVE) Urine RBC 1 /HPF (0-2/HPF) Urine WBC 2 /HPF (0-5/HPF) Urine Squamous Epithelial Cells Few /LPF (</=FEW) Urine Bacteria Negative /HPF (NONE-FEW) Urine Mucus None /HPF (NONE-FEW) EKG/Imaging EKG Interpretation 12 lead EKG: Time of EKG 1647. Rhythm: Normal sinus rhythm, ventricular rate 62 bpm. [place]: normal QRS: normal ST segments: Inverted T waves in V2 and V3 with a similar pattern noted in the 04/21/[address] elevation or depression identified. [place] [facility] [place]ia N[place] : 1955 Visit/Account:[id number] Date of Sevice: 02/21/2018 EXAMINATION: CT head without IV contrast HISTORY: Worsening headache. Palpitations. TECHNIQUE: Axial CT images of the head were obtained from the vertex to the skull base without IV contrast, with coronal and sagittal 2D reconstructed images. One of the following dose optimization techniques was utilized in the performance of this exam: Automated exposure control; adjustment of the mA an d/or kV according to the patient's size; or use of an iterative reconstruction technique. Specific details can be referenced in the facility's radiology CT exam operational policy. COMPARISON: 04/21/2017. FINDINGS: The intracranial contents are unremarkable. No CT evidence of intracranial h emorrhage, mass lesion, or acute infarct. No midline shift or extra-axial fluid collections. Covarrubias-white differentiation is maintained. The calvarium is intact. The visualized paranasal sinuses and mastoid air cells are unopacified. IMPRESSION: Unremarkable noncontrast head CT. Report Dictated By: Thom Hays MD at 02/21/2018 5:39 PM Report E-Signed By: Thom Hays MD at 02/21/2018 5:42 PM WSN:[id number] [place] [facility] [place] Lia N[place] : 1955 Visit/Account:[id number] Date of Sevice: 02/21/2018 EXAMINATION: Chest 2 Views HISTORY: Palpitations. COMPARISON: 07/23/2017. FINDINGS: The lungs are clear. No focal consolidation or pleural fluid. No pneumothorax. Normal cardiomediastinal silhouette, with normal heart size and pulmonary vascularity. Visualized osseous structures are unremarkable. IMPRESSION: Negative chest. Report Dictated By: Thom Hays MD at 02/21/2018 5:42 PM Report E-Signed By: Thom Hays MD at 02/21/2018 5:42 PM WSN:[email or web address] ED Course/Re-evaluation Clinical Indication for ER IV: Hydration, IV Access ED Course The patient was admitted to room. History and physical were obtained. Differential diagnoses were considered. An IV was started. A CBC, CMP, troponin were obtained. A 1 L normal saline bolus was given. 4 mg IV Zofran. 30 mg IV Toradol. EKG showing normal sinus rhythm, with inverted T waves in V2 V3 which was similar to previous EKGs. Chest x-ray and head CT were negative. Lab studies showing hemoglobin 16.4, hematocrit 48.3. Chemistry unremarkable, negative UA. Patient did have positive Alina maneuver on the right side. Patient was given meclizine. Patient states she is feeling better. I did review the laboratory studies and imaging studies with the patient did tell her that I don't have a clear reason for the headache however it did improve with the hydration and medications to tell her that it could be related to seasonal allergies as well as the hypothenar index and the smoke. The dizziness is likely vertigo. I did send the patient home with prescription for meclizine. Patient was also instructed to follow-up with her primary care provider within one week for reevaluation. Return to the ER for any other concerns or worsening symptoms. Patient was in agreement with this plan of care and discharged home. Decision to Disposition Date: Feb 21, 2018 Decision to Disposition Time: 18:14 Depart Departure Latest Vital Signs Vital Signs Date Time Temp Pulse Resp B/P (MAP) Pulse Ox O2 Delivery O2 Flow Rate FiO2 02/21/18 18:00 105/70 (82) 02/21/18 17:35 71 13 88 02/21/18 16:11 97.7 Room Air Impression: Primary Impression: Vertigo Additional Impressions: Headache Nausea with vomiting Condition: Improved Disposition: HOME OR SELF-CARE Referrals: ESVIN BAXTER MD (PCP) New Scripts Meclizine Hcl (MECLIZINE HCL) 25 Mg Tablet 25 MG PO BID PRN for prn, #10 TAB 0 Refills Prov: TAL HEMPHILL CUT OFF MACHINE HELPER-BC 02/21/18 Patient Instructions: Acute Headache (ED), Acute Nausea and Vomiting (ED), Vertigo (ED) Additional Instructions: I believe your dizziness is secondary to vertigo. The CT of your head and chest were negative for any concerning findings. Lab studies and EKG unremarkable. Take the meclizine as prescribed for dizziness. Drink plenty of water. Get plenty of rest. Follow-up with your primary care provider within one week for reevaluation. Return to the ER for any other concerns or worsening symptoms. Problem Qualifiers Additional Impressions: Headache Headache type: unspecified Headache chronicity pattern: acute headache Intractability: not intractable Qualified Codes: R51 - Headache Nausea with vomiting Vomiting type: unspecified Vomiting Intractability: non-intractable Qualified Codes: R11.2 - Nausea with vomiting, unspecified TAL HEMPHILL CUT OFF MACHINE HELPER-BC Feb 21, 2018 16:22
[2018-02-21] MEDS ORDERED: NS(*) 0.9% 1000 ML BAG 1,000 ML IV ONE (16:37)
[2018-02-21] MEDS ORDERED: ONDANSETRON 4 MG ODT TABDP SL ONE (16:40)
[2018-02-21] MEDS ORDERED: MECLIZINE HCL 25 MG TAB PO ONE (16:40)
[2018-02-21] MEDS ORDERED: ONDANSETRON 4 MG/2 ML VIAL IVP ONE (16:45)
[2018-02-21 16:47] LABS: PLATELET COUNT, AUTOMATED 247 K/uL (150-450)
--- NOTE | 2018-02-21 16:53 | EKG ---
[place] [facility] [place] NAME: FRANK MORTON : [id number] MR: [id number] V: [id number] EXAM DATE: ORDERING PHYSICIAN: TAL HEMPHILL TECHNOLOGIST: AMITA Test Reason : NAUSEA Blood Pressure : / mmHG Vent. Rate : 062 BPM Atrial Rate : 062 BPM P-R Int : 162 ms QRS Dur : 078 ms QT Int : 398 ms P-R-T Axes : 061 052 029 degrees QTc Int : 403 ms Normal sinus rhythm ST-T wave abnormality, possible septal ischemia Abnormal ECG Confirmed by GISELL MANNING ([id number]) on 02/21/2018 7:35:55 PM Referred By: VICENTE Confirmed By:GISELL MANNING
--- NOTE | 2018-02-21 17:45 | RADIOLOGY IMAGING REPORT ---
FACILITY: [facility] - [place] PATIENT NAME: Lia Nieves : 1955 MR: [id number] V: [id number] EXAM DATE: ORDERING PHYSICIAN: TAL HEMPHILL TECHNOLOGIST: Location: [facility] [place] Patient: Lia Nieves : 1955 Visit/Account:[id number] Date of Sevice: 02/21/2018 EXAMINATION: CT head without IV contrast HISTORY: Worsening headache. Palpitations. TECHNIQUE: Axial CT images of the head were obtained from the vertex to the skull base without IV c ontrast, with coronal and sagittal 2D reconstructed images. One of the following dose optimization techniques was utilized in the performance of this exam: Autom ated exposure control; adjustment of the mA and/or kV according to the patient's size; or use of an i terative reconstruction technique. Specific details can be referenced in the facility's radiology C T exam operational policy. COMPARISON: 04/21/2017. FINDINGS: The intracranial contents are unremarkable. No CT evidence of intracranial hemorrhage, mass lesion, or acute infarct. No midline shift or extra-axial fluid collections. Covarrubias-white differentiation is maintained. The calvarium is intact. The visualized paranasal sinuses and mastoid air cells are unopacified. IMPRESSION: Unremarkable noncontrast head CT. Report Dictated By: Thom Hays MD at 02/21/2018 5:39 PM Report E-Signed By: Thom Hays MD at 02/21/2018 5:42 PM WSN:[id number]
--- NOTE | 2018-02-21 17:46 | RADIOLOGY IMAGING REPORT ---
FACILITY: [facility] [place] PATIENT NAME: Lia Nieves : 1955 MR: [id number] V: [id number] EXAM DATE: ORDERING PHYSICIAN: TAL HEMPHILL TECHNOLOGIST: [place] [facility] [place] Patient: Lia Nieves : 1955 Visit/Account:[id number] Date of Sevice: 02/21/2018 EXAMINATION: Chest 2 Views HISTORY: Palpitations. COMPARISON: 07/23/2017. FINDINGS: The lungs are clear. No focal consolidation or pleural fluid. No pneumothorax. Normal cardiomedias tinal silhouette, with normal heart size and pulmonary vascularity. Visualized osseous structures ar e unremarkable. IMPRESSION: Negative chest. Report Dictated By: Thom Hays MD at 02/21/2018 5:42 PM Report E-Signed By: Thom Hays MD at 02/21/2018 5:42 PM WSN:[id number]
[2018-02-21 18:00] VITALS: BP 105/70
[2018-02-21] MEDS ORDERED: KETOROLAC 30 MG/ML VIAL IVP ONE (18:15)
[2018-02-21] MEDS ORDERED: MECL25TA9 PO (18:16)
== END 2018-02-21 18:52 | disposition home or self-care (01) ==
LOC: ER 16:10
DX: R51 Headache (principal); R11.2 Nausea with vomiting, unspecified; R42 Dizziness and giddiness
CPT/HCPCS: 70450; 71046; 81001; 84484; 85025; 93005; 96361; 96374; 96375; 99284; J1885; J2405; J7030; J8597; 82040; 82247; 82310; 82374; 82435; 82565; 82947; 84075; 84132; 84155; 84295; 84450; 84460; 84520

== ENCOUNTER → 2018-03-17 | Outpatient (CLI) | payer BC ==
[~2018-03-17] MED LIST changes: +ESTR42.5 VA; +MECL25TA9 PO
== END ==
LOC: LAB 09:01
PROVIDERS: ATTEND Emergency Medicine
DX: E03.9 Hypothyroidism, unspecified (principal)
CPT/HCPCS: 36415; 84443

== ENCOUNTER → 2018-03-20 | Outpatient (CLI) | payer BC | LOC: RESP 20:53 | PROVIDERS: ATTEND Student in an Organized Health Care Education/Training Program | DX: G47.30 Sleep apnea, unspecified (principal); G47.61 Periodic limb movement disorder; G47.36 Sleep related hypoventilation in conditions classified elsewhere ==

== ENCOUNTER → 2018-04-02 | Outpatient (CLI) | payer BC | LOC: LAB 12:53 | PROVIDERS: ATTEND Emergency Medicine | DX: G25.81 Restless legs syndrome (principal) | CPT/HCPCS: 36415; 82607; 83540; 83550 ==

== ENCOUNTER → 2018-04-11 | Outpatient (CLI) | payer BC ==
[~2018-04-11] MED LIST changes: +CYAN20003 PO; -HYDR-4309 PO; +HYDR-653 PO
== END ==
LOC: RESP 03:33
PROVIDERS: ATTEND Emergency Medicine
DX: G47.34 Idiopathic sleep related nonobstructive alveolar hypoventilation (principal)
CPT/HCPCS: 94060; 94726; 94729

== ENCOUNTER → 2018-04-29 | Outpatient (CLI) | payer BC | LOC: LAB 09:08 | PROVIDERS: ATTEND Nurse Practitioner Family | DX: E03.9 Hypothyroidism, unspecified (principal) | CPT/HCPCS: 36415; 84443 ==

== ENCOUNTER → 2018-06-04 | Outpatient (CLI) | payer BC ==
[~2018-06-04] MED LIST changes: +FLU60VIA41 IM
[2018-06-04 09:30] LABS: PLATELET COUNT, AUTOMATED 276 K/uL (150-450)
[2018-06-04 10:01] LABS: LDL CHOLESTEROL 153 mg/dl
== END ==
LOC: LAB 09:11
PROVIDERS: ATTEND Emergency Medicine
DX: E11.9 Type 2 diabetes mellitus without complications (principal)
CPT/HCPCS: 36415; 82040; 82247; 82306; 82310; 82374; 82435; 82465; 82565; 82947; 83036; 83718; 84075; 84132; 84155; 84295; 84450; 84460; 84478; 84520; 85025

== ENCOUNTER → 2018-07-16 | Outpatient (CLI) | payer BC ==
[~2018-07-16] MED LIST changes: +AZIT-1 PO; +PNEI IM; +PROM473S4 PO
--- NOTE | 2018-07-17 08:30 | RADIOLOGY IMAGING REPORT ---
[place] [facility] [place]: FRANK MROTON : [id number] MR: [id number] V: [id number] EXAM DATE: ORDERING PHYSICIAN: ESVIN BAXTER TECHNOLOGIST: Jackie Maravilla PROCEDURE:BILATERAL DIGITAL SCREENING MAMMOGRAM WITH CAD ASSISTED INTERPRETATION & 3D TOMOSYNTHESIS COMPARISON:Prior mammograms dated 10/28/15, 07/08/13 INDICATIONS:SCREENING FINDINGS: Scattered fibroglandular densities are seen throughout the breasts. The parenchymal pattern has remained stable allowing for difference in mammographic technique & patient positioning. DIAGNOSTIC CATEGORY 1--NEGATIVE. RECOMMENDATIONS: ROUTINE MAMMOGRAM AND CLINICAL EVALUATION. IMPRESSION: BIRADS 1: Negative. No significant abnormality is seen. Dictated by: Lucy Lowery M.D. on 07/16/2018 at 9:16 Transcribed by: HIRA on 07/16/2018 at 13:48 Approved by: Lucy Lowery M.D. on 07/17/2018 at 8:29 [facility]
== END ==
LOC: MAMO 00:19
PROVIDERS: ATTEND Emergency Medicine
DX: Z12.31 Encounter for screening mammogram for malignant neoplasm of breast (principal)
CPT/HCPCS: 77063; 77067

== ENCOUNTER → 2018-08-13 | Outpatient (CLI) | payer BC ==
[~2018-08-13] MED LIST changes: +ESTR1POW41 MC
== END ==
LOC: LAB 11:37
PROVIDERS: ATTEND Obstetrics & Gynecology
DX: L29.2 Pruritus vulvae (principal)
CPT/HCPCS: 87210

== ENCOUNTER → 2018-09-05 | Outpatient (CLI) | payer BC ==
--- NOTE | 2018-09-05 10:15 | RADIOLOGY IMAGING REPORT ---
[place] [facility] [place] Lia N[place] : 1955 MR: [id number] V: [id number] EXAM DATE: ORDERING PHYSICIAN: ESVIN BAXTER TECHNOLOGIST: Location: [facility] - [place] Patient: Lia Nieves : 1955 Visit/Account:[id number] Date of Sevice: 09/05/2018 Chest with lateral, two views. HISTORY: Cough. COMPARISON: 02/21/2018. The heart and mediastinum are unremarkable. Pulmonary vessels are unremarkable. The lungs are clear . The pleural surfaces are unremarkable. No pneumothorax. Degenerative changes are present in the sp ine. Surgical clips are present in the right upper abdomen. IMPRESSION: No evidence of acute cardiopulmonary disease. Report Dictated By: Hernandez Durand MD at 09/05/2018 10:08 AM Report E-Signed By: Hernandez Durand MD at 09/05/2018 10:12 AM WSN:[email or web address]
== END ==
LOC: RAD 08:52
PROVIDERS: ATTEND Emergency Medicine
DX: R05 Cough (principal)
CPT/HCPCS: 71046

== ENCOUNTER → 2018-11-27 | Outpatient (CLI) | payer BC ==
[~2018-11-27] MED LIST changes: +CIPR-344 PO; -DIPH0.5D12 IM; +DIPH0.5S2 IM
[2018-11-27 15:26] LABS: PLATELET COUNT, AUTOMATED 269 K/uL (150-450)
== END ==
LOC: LAB 15:08
PROVIDERS: ATTEND Obstetrics & Gynecology
DX: K57.92 Diverticulitis of intestine, part unspecified, without perforation or abscess without bleeding (principal)
CPT/HCPCS: 36415; 82040; 82247; 82310; 82374; 82435; 82565; 82947; 84075; 84132; 84155; 84295; 84450; 84460; 84520; 85025

== ENCOUNTER → 2018-12-12 | Outpatient (CLI) | payer BC ==
[~2018-12-12] MED LIST changes: -OMEP-125 PO; +OMEP-126 PO
== END ==
LOC: LAB 09:56
PROVIDERS: ATTEND Emergency Medicine
DX: E53.8 Deficiency of other specified B group vitamins (principal); E55.9 Vitamin D deficiency, unspecified; E78.5 Hyperlipidemia, unspecified; E11.9 Type 2 diabetes mellitus without complications
CPT/HCPCS: 36415; 82306; 82465; 82607; 83036; 83718; 84478

== ENCOUNTER → 2019-02-16 | Outpatient (CLI) | payer BC ==
[~2019-02-16] MED LIST changes: +CHOL500045 PO
== END ==
LOC: LAB 14:57
PROVIDERS: ATTEND Emergency Medicine
DX: E03.9 Hypothyroidism, unspecified (principal); E53.8 Deficiency of other specified B group vitamins; E55.9 Vitamin D deficiency, unspecified; R25.2 Cramp and spasm
CPT/HCPCS: 36415; 82306; 82607; 83735; 84443